=== PATIENT | male | born 1950 | race Caucasian/White ===

== ENCOUNTER → 2017-12-01 | Outpatient (CLI) | payer MEDICARE, OTHER ==
--- NOTE | 2017-12-01 11:12 | Diagnostic Imaging Report ---
Right knee MRI without contrast. History: Knee pain. Meniscus tear. Decreased range of motion. Arthritis. Comparison: None. Technique: Multiplanar multi-sequence MRI of the knee without contrast. Findings: Medial compartment: There is a complex tear involving the posterior horn and body segments of the medial meniscus. Meniscal tissue is displaced to the periphery. There is advanced full-thickness articular cartilage loss in the medial compartment with underlying bone marrow edema and peripheral osteophytosis. The medial collateral ligament complex is intact. Lateral compartment: The lateral meniscus is intact. The lateral compartmental articular cartilage surfaces are thinned with regions of fraying and deep fissuring. There is mild underlying bone marrow edema. There are peripheral marginal osteophytes. The lateral collateral ligament complex is intact. Intercondylar notch: The ACL and PCL are intact. Patellofemoral compartment: There is articular cartilage fraying and deep fissuring in the patellofemoral compartment with underlying bone marrow edema. Extensor mechanism: The quadriceps and patellar tendons are normal. Other findings: There is a joint effusion and synovitis. There is no acute fracture, subluxation or avascular necrosis. There is a lobulated septated Chapa's cyst containing debris/small loose bodies. Numerous small loose bodies are seen in the suprapatellar effusion. 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 Articular cartilage fraying and deep fissuring in the lateral and patellofemoral compartments with underlying bone marrow edema. Joint effusion, synovitis, lobulated septated Chapa's cyst and numerous small loose intra-articular bodies. Signed by: Dr. Richard Spring M.D. on 12/01/2017 11:09 AM
== END ==
LOC: MRI 09:16
PROVIDERS: ATTEND Specialist
DX: S83.241A Other tear of medial meniscus, current injury, right knee, initial encounter (principal)

== ENCOUNTER → 2025-01-04 | Outpatient (REF) | payer MEDICARE, OTHER ==
[~2025-01-04] MED LIST: AMLODIPINE BESYL5 MG PO; GLUCOSAMINE &1 EAC1; IOPAMIDOL 370 MG/ML 100 ML INFUS..BTL INJ ONE; MELOXICAM7.5 MG PO; MULTI-VITAMIN1 EACH; TYLENOL EXTRA500 MG
[2025-01-04 09:42] LABS: EST GLOMERULAR FILTRATION RATE 94.0 ML/MIN (>=60)
== END ==
LOC: CT 09:06
PROVIDERS: ATTEND Pain Medicine Interventional Pain Medicine
DX: D37.4 Neoplasm of uncertain behavior of colon (principal); K57.30 Diverticulosis of large intestine without perforation or abscess without bleeding; K64.8 Other hemorrhoids; E66.01 Morbid (severe) obesity due to excess calories
CPT/HCPCS: 36415; 74177; 82565; 84520; Q9967